=== PATIENT | female | born 1990 | race African-American/Black ===

== ENCOUNTER 2017-02-07 21:29 | Emergency (ER) | payer MEDICAID, OTHER ==
[~2017-02-07] VITALS: Ht 180.3 cm; Wt 140.0 kg
[2017-02-07 22:47] VITALS: BP 156/95
[2017-02-08] MEDS ORDERED: IBUPROFEN 600MG TABLET PO ONE (03:00)
[2017-02-08] MEDS ORDERED: AMOXICILLIN 500 MG CAPSULE PO ONE (03:00)
== END 2017-02-08 03:48 | disposition home or self-care (01) ==
LOC: ER 21:29
DX: K04.7 Periapical abscess without sinus (principal); R03.0 Elevated blood-pressure reading, without diagnosis of hypertension
CPT/HCPCS: 99283

== ENCOUNTER 2018-05-02 17:50 | Emergency (ER) | payer MEDICAID ==
[~2018-05-02] VITALS: Ht 180.3 cm; Wt 131.5 kg
[2018-05-02] MEDS ORDERED: ACETAMINOPHEN 325MG TABLET PO STA (18:43)
[2018-05-02 19:54] LABS: BASOPHILS % 1.1 % (0.0-2.0); EOSINOPHILS % 2.1 % (0.0-5.0); HEMATOCRIT. 37.4 % (36.0-48.0); HEMOGLOBIN. 12.3 g/dL (12.0-16.0); LYMPHOCYTES % 24.4 % (20.0-50.0); MEAN CORPUSCULAR HEMOGLOBIN 26.8 pg (28.0-32.0); MEAN CORPUSCULAR VOLUME 81.5 fL (81.0-99.0); MEAN PLATELET VOLUME 8.9 fl (7.4-10.4); MONOCYTES % 9.2 % (2.0-8.0); NEUTROPHILS % 63.2 % (40.0-76.0); PLATELET 220 x1000/uL (130-400); RED BLOOD CELL COUNT 4.58 mill/uL (4.2-5.4); RED CELL DISTRIBUTION WIDTH 15.5 % (11.6-14.6)
[2018-05-02 19:58] LABS: CHLORIDE 105 mEq/L (98-107)
[2018-05-02 20:23] LABS: B-HCG QUANTITATIVE 7907 mIU/mL (<3)
[2018-05-02 20:54] LABS: CLARITY URINE CLEAR (CLEAR); COLOR URINE YELLOW (YELLOW); KETONES URINE 2+ (NEGATIVE); LEUKOCYTE ESTERASE URINE NEGATIVE (NEGATIVE); NITRITE URINE NEGATIVE (NEGATIVE); OCCULT BLOOD URINE NEGATIVE (NEGATIVE); PH URINE 6.5 (4.5-8.0); PROTEIN URINE NEGATIVE (NEGATIVE); SPECIFIC GRAVITY URINE 1.022 (1.005-1.030)
[2018-05-02 21:40] VITALS: BP 153/82
== END 2018-05-02 22:21 | disposition home or self-care (01) ==
LOC: ER 17:50
DX: O9A.212 Injury, poisoning and certain other consequences of external causes complicating pregnancy, second trimester (principal); R10.9 Unspecified abdominal pain; Z3A.18 18 weeks gestation of pregnancy; Z98.890 Other specified postprocedural states; Z91.013 Allergy to seafood
CPT/HCPCS: 36415; 76705; 76805; 81025; 84702; 99284

== ENCOUNTER 2018-06-18 20:19 | Observation (INO) | payer MEDICAID ==
[~2018-06-18] VITALS: Ht 180.3 cm; Wt 135.2 kg
[2018-06-18] MEDS ORDERED: PNV1TABL50 MT (20:57)
[2018-06-18] MEDS ORDERED: ACETAMINOPHEN 500MG TABLET PO NR (21:00)
== END 2018-06-18 21:48 | disposition home or self-care (01) ==
LOC: 8 EST LDRP 20:19
PROVIDERS: ADMIT Obstetrics & Gynecology; ATTEND Obstetrics & Gynecology
DX: O26.892 Other specified pregnancy related conditions, second trimester (principal); R10.30 Lower abdominal pain, unspecified; M54.5 Low back pain; Z3A.24 24 weeks gestation of pregnancy
CPT/HCPCS: 99281; G0378